=== PATIENT | male | born 1955 | race Caucasian/White ===

== ENCOUNTER 2018-10-18 09:15 | Outpatient (CLI) | payer OTHER ==
[~2018-10-18] VITALS: Ht 182.9 cm; Wt 93.0 kg
[~2018-10-18 09:15] MED LIST: CLINDAMYCIN PO; HYDR1TAB PO; METR500T PO; NF-ESOM40C PO
== END 2018-10-18 09:23 ==
LOC: PREOP 09:23
PROVIDERS: ATTEND Internal Medicine
DX: Z01.818 Encounter for other preprocedural examination (principal)

== ENCOUNTER 2018-10-19 06:58 | Day surgery (SDC) | payer OTHER ==
--- NOTE | 2018-10-15 04:11 | HISTORY AND PHYSICAL ---
DATE OF SERVICE: COLONOSCOPY HISTORY AND PHYSICAL HISTORY OF PRESENT ILLNESS: The patient is a 63-year-old white male referred by Dr. Dubose for first screening colonoscopy. He denies any problems with melena or bright red blood per rectum. He reports that his weight has been stable. He denies bowel habit change or abdominal pain. FAMILY HISTORY: He is not aware of any history of colon cancer or polyps. Father at the age of 82 of complications from diabetes, type 2. Mother at age 62 with breast cancer. PAST SURGICAL HISTORY: Significant for laparoscopic umbilical hernia repair, complicated by ischemic bowel for which the patient had 6 cm of small intestine resected in 2012, surgery was complicated by report incisional cellulitis but he has had no problems since. PAST MEDICAL HISTORY: He has a diagnosis of type 2 diabetes mellitus. At one point was on medication, but over the past several years, has lost 40 to 60 pounds and is now off all medications with reportedly good blood sugar levels. He has had no subsequent problems with infection. He only takes occasional tramadol for pain is on no other medication. He reports no known drug allergies. REVIEW OF SYSTEMS: CONSTITUTIONAL: Denies night sweats, chills or fever. RESPIRATORY: He denies cough, chest pain, wheezing or shortness of breath. CARDIOVASCULAR: He reports no past history of cardiovascular intervention. Denying chest pain, shortness of breath, orthopnea, PND or pedal edema. GASTROINTESTINAL: As noted in the HPI REVIEW OF SYSTEMS: As noted in the HPI. 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 He has a 5-pack-year smoking history, but quit many years ago. Still consumes smokeless tobacco, reportedly around a can per week. PHYSICAL EXAMINATION: GENERAL: Reveals a well-appearing white male in no acute distress. VITAL SIGNS: Blood pressure 110/72. HEENT: Unremarkable. Sclerae nonicteric. He has a Mallampati class 2 oropharyngeal configuration with no evidence for erythema. NECK: Reveals no JVD, adenopathy or bruits. CHEST: Clear to auscultation. CARDIOVASCULAR: Reveals a regular rate and rhythm without murmur, S3 or S4. ABDOMEN: Soft, supple without mass, organomegaly or tenderness. Bowel sounds are positive. No evidence for abdominal aortic aneurysm was noted to palpation. EXTREMITIES: Reveal no cyanosis, clubbing or edema. RECTAL: Examination was deferred at the time of the procedure. ASSESSMENT: The patient was set up for his first screening colonoscopy on 10/19/2018. Prep instructions with Suprep kit were given. With discussion of the procedure, the patient's evaluation and evaluation of his electronic medical record, 40 minutes of my personal care time was spent with another 15 minutes of staff time setting of the procedure and going over prep instructions. I thank you for the referral of this pleasant gentleman. Job ID: [id number] DocumentID: [id number] Dictated Date: 10/10/2018 17:33:33 Pit Shoveler Date: 10/10/2018 18:11:23 Dictated By: JEFF DORAN MD MTDD
[~2018-10-19] VITALS: Ht 182.9 cm; Wt 93.0 kg
--- OUTSIDE RECORDS SUMMARY | 2018-10-19 07:04 | XMS REPORT | Continuity of Care Document ---
Author Author [facility] Organization [facility] Address Unknown Phone Unavailable Care Team Providers Care Mailing Manager Name Role Phone MARQUES CHANEY MD PP Insurance Providers Payer Name Policy Number Subscriber Name Relationship [facility] [id number] Darcy Henriquez J 02 Advance Directives Directive Response Recorded Date Advance Directives N 12/24/12 12:01am Health Care Power of News Video Editor N 12/24/12 12:01am Organ Donor N 12/24/12 12:01am Problems No Known Problems or Medical conditions. Family History History Response Recorded Date/Time Hx Family Cancer Y mom-breast 12/24/12 12 :01am Hx Family Breast Cancer Y mom 12/24/12 12 :01am Social History History Response Recorded Date/Time Alcohol Use Occasionally Uses 12/24/12 12 :01am Recreational Drug Use N 12/24/12 12:01am Recent Foreign Travel N 12/24/12 12:01am Recent Infectious Disease Exposure N 12:01am Hospitalization with Isolation Denies 11/07 4:57pm Allergies, Adverse Reactions, Alerts Allergen Type Severity Reaction Last Updated No Known Drug Allergies 12/22/12 Medications Medication Dose Units Route Sig Qty Days Metronidazole (Flagyl 500 Mg) 1 Each PO TID 7 [Clindamycin] 150 Mg PO TID 7 Acetaminophen/Hydrocodone Bitart (Vicodin 5-500 Tablet) 1 - 2 Each PO Q4HR PRN 30 Esomeprazole Magnesium (Nexium) 40 Mg PO DAILY Acetaminophen/Hydrocodone Bitart (Vicodin 5-500 Tablet) 1 - 2 Each PO Q4-6HR PRN 30 Response Recorded Date/Time Status not known Unknown Results Test Date Result Interp. Ref. Range Alanine Aminotransferase (ALT/SGPT) December 23, 2012 9:28pm 46 U/L N 30-65 Albumin December 23, 2012 9:28pm 3.8 G/DL N 3.4-5.0 Alkaline Phosphatase December 23, 2012 9:28pm 110 U/L N 50-136 Amylase Level December 22, 2012 8:54pm 35 U /L N 25-115 Aspartate Amino Transf (AST/SGOT) December 23, 2012 9:28pm 21 U/L N 15-37 BUN/Creatinine Ratio December 23, 2012 9:28pm 17 - Basophils # (Auto) December 23, 2012 9:28pm 0.0 10^3/uL N 0.0-0.1 Basophils (%) (Auto) December 23, 2012 9:28pm 0 % N 0-10 Blood Urea Nitrogen December 23, 2012 9:28pm 19 MG/DL H 7-18 Calcium Level December 23, 2012 9:28pm 8.4 MG/DL L 8.5-10.1 Carbon Dioxide Level December 23, 2012 9:28pm 25 MMOL/L N 21-32 Chloride Level December 23, 2012 9:28pm 102 MMOL/L N 101-110 Creatinine December 23, 2012 9:28pm 1.1 MG/ DL N 0.6-1.3 Eosinophils # (Auto) December 23, 2012 9:28pm 0.1 10^3/uL N 0.0-0.3 Eosinophils (%) (Auto) December 23, 2012 9:28pm 1 % N 0-10 Glucose Level December 23, 2012 9:28pm 106 MG/DL N 74-106 Hematocrit December 27, 2012 6:05am 37 % L 40-54 Hemoglobin December 27, 2012 6:05am 12.3 G/ DL DL 13.3-17.7 Lipase December 23, 2012 9:28pm 120 U/L N 73-393 Lymphocytes # (Auto) December 23, 2012 9:28pm 2.3 X 10^3 N 1.0-4.0 Lymphocytes (%) (Auto) December 23, 2012 9:28pm 19 % N 12-44 Mean Corpuscular Hemoglobin December 27, 2012 6:05am 29 PG N 25-34 Mean Corpuscular Hemoglobin Concent December 27, 2012 6:05am 34 G/DL N 32-36 Mean Corpuscular Volume December 27, 2012 6:05am 87 FL N 80-99 Mean Platelet Volume December 27, 2012 6:05am 10.2 FL N 7.4-10.4 Monocytes # (Auto) December 23, 2012 9:28pm 1.2 X 10^3 H 0.0-1.0 Monocytes (%) (Auto) December 23, 2012 9:28pm 9 % N 0-12 Neutrophils # (Auto) December 23, 2012 9:28pm 8.7 X 10^3 H 1.8-7.8 Neutrophils (%) (Auto) December 23, 2012 9:28pm 71 % N 42-75 Platelet Count December 27, 2012 6:05am 224 10^3/uL N 130-400 Potassium Level December 23, 2012 9:28pm 4.3 MMOL/L N 3.6-5.0 Red Blood Count December 27, 2012 6:05am 4.19 10^6/uL L 4.35-5.85 Red Cell Distribution Width December 27, 2012 6:05am 12.8 % N 10.0-14.5 Sodium Level December 23, 2012 9:28pm 137 MMOL/L N 135-145 Total Bilirubin December 23, 2012 9:28pm 0.5 MG/DL N 0.0-1.0 Total Protein December 23, 2012 9:28pm 7.0 G/DL N 6.4-8.2 Vancomycin Level Trough December 28, 2012 7:20am 10 UG/ML L 15-20 White Blood Count December 27, 2012 6:05am 6.3 10^3/uL N 4.3-11.0 Estimat Glomerular Filtration Rate December 23, 2012 9:28pm > 60 - Procedures Procedure Code Date ABD WALL EDUARDO REPAIR NEC 53.59 12/24/12 PART SM BOWEL RESECT NEC 45.62 12/24/12 SM-TO-SM BOWEL ANASTOM 45.91 12/24/12 MANUAL REDUCTION HERNIA 96.27 12/23/12 MRSA Screen 12/24/12 Encounters Encounter Location Date/Time Discharged Inpatient [facility] 11:32pm Departed Emergency Room [facility] 8:37pm
--- OUTSIDE RECORDS SUMMARY | 2018-10-19 07:04 | XMS REPORT | Continuity of Care Document ---
Author Author [facility] Organization [facility] Address Unknown Phone Unavailable Care Team Providers Care Bobbin Trucker Name Role Phone MARQUES CHANEY MD PP Insurance Providers Payer Name Policy Number Subscriber Name Relationship [facility] [id number] Darcy Henriquez J 02 Advance Directives Directive Response Recorded Date Advance Directives N 12/24/12 12:01am Health Care Power of Power Equipment Technology Instructor N 12/24/12 12:01am Organ Donor N 12/24/12 [...] - Procedures Procedure Code Date ABD WALL EDUAROD REPAIR NEC 53.59 12/24/12 PART SM BOWEL RESECT NEC 45.62 12/24/12 SM-TO-SM BOWEL ANASTOM 45.91 12/24/12 MANUAL REDUCTION HERNIA 96.27 12/23/12 MRSA Screen 12/24/12 Encounters Encounter Location Date/Time Discharged Inpatient [facility] 11:32pm Departed Emergency Room [facility] 8:37pm
--- OUTSIDE RECORDS SUMMARY | 2018-10-19 07:04 | XMS REPORT | Continuity of Care Document ---
Author Author [facility] Organization [facility] Address Unknown Phone Unavailable Allergies Active Description Code Type Severity Reaction Onset Reported/Identified Relationship to Patient Clinical Status Yes No Known Drug Allergies [id number] Drug Allergy Unknown N/A 10/18/2018 Medications There is no data. Problems Date Dx Coded Attending Type Code Diagnosis Diagnosed By 10/17/2018 JEFF DORAN MD Ot Z01.818 ENCOUNTER FOR OTHER PREPROCEDURAL EXAMIN 10/18/2018 JEFF DORAN MD Ot Z01.818 ENCOUNTER FOR OTHER PREPROCEDURAL EXAMIN 10/18/2018 JEFF DORAN MD Ot Z01.818 ENCOUNTER FOR OTHER PREPROCEDURAL EXAMIN Procedures There is no data. Results There is no data. Encounters ACCT No. Visit Date/Time Discharge Status Pt. Type Provider Facility Loc./Unit Complaint [id number] 10/18/2018 09:15:00 10/18/2018 09:23:00 DIS Outpatient JEFF DORAN MD [facility] PREOP COLONOSCOPY [id number] 12/23/2012 23:32:00 12/28/2012 12:40:00 DIS Inpatient [id number] 12/22/2012 20:37:00 12/22/2012 22:41:00 DIS Emergency [id number] 10/19/2018 08:00:00 PEN Preadmit JEFF DORAN MD [facility] ENDO SCREENING
[2018-10-19] MEDS ORDERED: D5 LR IV SOLUTION 1,000 ML IV ONE (07:08)
[2018-10-19] MEDS ORDERED: D5 LR IV SOLUTION 1,000 ML IV STA (07:23)
[2018-10-19 07:26] VITALS: BP 121/67
[2018-10-19] MEDS ORDERED: fentaNYL INJECTION 100 MCG/2 ML AMP IVP ONE (07:30)
[2018-10-19] MEDS ORDERED: LIDOCAINE JELLY 2% 6 ML SYRINGE ONE (07:30)
[2018-10-19] MEDS ORDERED: LIDOCAINE JELLY 2% 6 ML SYRINGE MM PRN (07:30)
[2018-10-19] MEDS ORDERED: MIDAZOLAM 2 MG/2 ML (VERSED) VIAL ONE ×2 (07:30)
[2018-10-19] MEDS ORDERED: fentaNYL INJECTION 100 MCG/2 ML AMP ONE (07:30)
[2018-10-19] MEDS ORDERED: MIDAZOLAM 2 MG/2 ML (VERSED) VIAL IVP ONE (07:30)
--- NOTE | 2018-10-19 08:27 | Pre-Op Note & Conscious Sedat ---
Pre-Operative Progress Note H&P Reviewed The H&P was reviewed, patient examined and no changes noted. Date H&P Reviewed: Oct 19, 2018 Time H&P Reviewed: 07:30 Conscious Sedation Pre-Proced ASA Score 2 For ASA 3 and 4: Consider anesthesia and medical clearance. Also, for patients with a history of failed moderate sedation consider anesthesia. Airway Lungs Heart ASA score ASA 1: a normal healthy patient ASA 2: a patient with a mild systemic disease (mid diabetes, controlled hypertension, obesity ASA 3: a patient with a severe systemic disease that limits activity (angina , COPD, prior Myocardial infarction) ASA 4: a patient with an incapacitating disease that is a constant threat to life (CHF, renal failure) ASA 5: a moribund patient not expected to survive 24 hrs. (ruptured aneurysm) ASA 6: a declared brain- patient whose organs are being harvested. For emergent operations, add the letter E after the classification Mallampati Classification Grade 2 Sedation Plan Analgesia, Amnesia, Plan communicated to team members, Discussed options with patient/fam, Discussed risks with patient/fam The patient is an appropriate candidate to undergo the planned procedure, sedation, and anesthesia. The patient immediately re-assessed prior to indication. JEFF DORAN MD Oct 19, 2018 08:27
[2018-10-19 08:35] VITALS: BP 118/83
[2018-10-19 08:45] VITALS: BP 117/87
[2018-10-19 09:01] VITALS: BP 117/87
--- NOTE | 2018-10-19 17:49 | OPERATIVE REPORT ---
DATE OF SERVICE: 10/19/2018 COLONOSCOPY SUMMARY The patient was referred for his first screening colonoscopy. DESCRIPTION OF PROCEDURE: The patient was placed in the left lateral decubitus position. Prior to ending colonoscopy, digital rectal evaluation was performed. Anal sphincter tone was normal and the perianal reflexes intact. Prostate is mildly enlarged, anodular and nontender to digital inspection. No other abnormalities noted on digital inspection of anal canal or distal rectal vault. The colonoscope was then inserted into the rectum and under direct visualization advanced to the cecum. The cecum was identified by identification of the ileocecal valve and cecal strap. Photographic documentation was obtained. Quality of prep was good. The patient tolerated the procedure well. FINDINGS: There was no evidence for internal or external hemorrhoids. The rectum was unremarkable. Several small sigmoid diverticulum were present without evidence for diverticulitis. No other sigmoid colonic abnormalities were appreciated. The descending colon, splenic flexure, transverse colon, hepatic flexure, ascending colon and cecum were unremarkable. No evidence for neoplasia was identified. ASSESSMENT: 1. Digital evaluation of the prostate was compatible with mild benign prostatic hypertrophy. 2. Mild diverticular disease by the sigmoid colon was present without evidence for diverticulitis. No evidence for neoplasia was identified on today's procedure. We would advocate consideration for repeat screening colonoscopy in 10 years as the patient reports no family history for colon cancer or polyps that he is aware of. I thank you for the referral of this pleasant gentleman. Job ID: [id number] DocumentID: [id number] Dictated Date: 10/19/2018 09:48:24 Mva Operator Date: 10/19/2018 17:48:48 Dictated By: JEFF DORAN MD
== END 2018-10-19 08:55 | disposition home or self-care (01) ==
LOC: ENDO 06:58
PROVIDERS: ATTEND Internal Medicine
DX: Z12.11 Encounter for screening for malignant neoplasm of colon (principal); K57.30 Diverticulosis of large intestine without perforation or abscess without bleeding; N40.0 Benign prostatic hyperplasia without lower urinary tract symptoms; E11.9 Type 2 diabetes mellitus without complications; F17.220 Nicotine dependence, chewing tobacco, uncomplicated